=== PATIENT | female | born 1985 | race Hispanic/Latino ===

== ENCOUNTER 2021-09-08 07:30 | Observation (INO) | payer BC ==
[2021-09-06 14:45] VITALS: BP 158/94
[2021-09-06 15:18] LABS: BASOPHILS % (AUTO) 0.1 % (0.0-5.0); EOSINOPHILS % (AUTO) 1.9 % (0.0-8.0); HEMATOCRIT 35.3 % (36-48); LYMPHOCYTES % (AUTO) 20.9 % (21.0-51.0); MEAN CORPUSCULAR HEMOGLOBIN 23.1 pg (27.0-33.0); MEAN CORPUSCULAR HGB CONC 30.3 g/dL (32.0-36.0); MEAN CORPUSCULAR VOLUME 76.1 fL (79-99); MONOCYTES % (AUTO) 5.9 % (3.0-13.0); NEUTROPHILS % (AUTO) 70.9 % (40.0-77.0); PLATELET COUNT (AUTO) 286 K/uL (130-400); RED BLOOD CELL COUNT(AUTO) 4.64 MIL/uL (4.00-5.50); RED CELL DISTRIBUTION WIDTH 18.2 % (11.0-15.5); WHITE BLOOD COUNT (AUTO) 6.8 K/uL (4.8-10.8)
[2021-09-06 15:30] LABS: CREATININE 0.7 mg/dL (0.5-1.5); POTASSIUM 3.4 mmol/L (3.5-5.1)
[2021-09-06 15:32] LABS: INR 1.03 (0.85-1.15); PROTHROMBIN TIME 11.2 SEC (9.6-11.6)
[2021-09-06 15:34] LABS: PARTIAL THROMBOPLASTIN TIME 29.8 SEC (26.3-35.5)
[2021-09-08] VITALS (35 sets, daily range): BP systolic 127–173; BP diastolic 68–114
[~2021-09-08] VITALS: Ht 170.2 cm; Wt 116.6 kg
[2021-09-08] MEDS ORDERED: LACTATED RINGERS 1000ML 1,000 ML IV ONE (08:05)
[2021-09-08] MEDS: CEFAZOLIN SODIUM 1 GM VIAL ONE ×2 (08:30→13:36)
[2021-09-08] MEDS ORDERED: SUCCINYLCHOLINE CHLORIDE 20 MG/ML 10 ML VIAL ONE (12:22)
[2021-09-08] MEDS ORDERED: LIDOCAINE PF 100MG/5ML (2%) SYRINGE 5ML ONE (12:22)
[2021-09-08] MEDS ORDERED: PHENYLEPHRINE HCL 10 MG/ML 1ML VIAL IV ONE (12:22)
[2021-09-08] MEDS ORDERED: FENTANYL CITRATE PF 50 MCG/1 ML 5ML AMP IV ONE ×2 (12:23→15:44)
[2021-09-08] MEDS ORDERED: PROPOFOL 10 MG/ML 20ML VIAL IV ONE ×2 (12:23→15:28)
[2021-09-08] MEDS ORDERED: LIDOCAINE 1%-EPI 1:100,000 20 ML VIAL IJ ONE (12:48)
[2021-09-08] MEDS ORDERED: BACITRACIN 28.4 GM OINT TP ONE (15:08)
[2021-09-08] MEDS: LABETALOL 20MG SYG IV ONE ×2 (16:47→17:10)
[2021-09-08] MEDS ORDERED: LABETALOL 20MG SYG IV ONE (17:11)
[2021-09-08] MEDS ORDERED: HYDRALAZINE 20MG/ML VIAL ONE (18:28)
[2021-09-08] MEDS ORDERED: ONDANSETRON 4MG INJ IVP PRN (20:30)
[2021-09-08] MEDS ORDERED: HYDROMORPHONE 0.5 MG SYG (0.5MG/0.5ML) IVP PRN (20:30)
[2021-09-08] MEDS: LACTATED RINGERS 1000ML 1,000 ML IV SCH (20:51)
[2021-09-08] MEDS: ACETAMINOPHEN 500 MG TABLET PO PRN (21:03)
[2021-09-09] VITALS (10 sets, daily range): BP systolic 126–136; BP diastolic 74–90
[2021-09-09] MEDS ORDERED: LABETALOL 20MG VIAL IV PRN (02:00)
[2021-09-09] MEDS ORDERED: HYDRALAZINE HCL 10 MG TABLET PO SCH (02:00)
[2021-09-09] MEDS: ACETAMINOPHEN 500 MG TABLET PO PRN (03:09)
[2021-09-09] MEDS: LACTATED RINGERS 1000ML 1,000 ML IV SCH (05:39)
[2021-09-09] MEDS ORDERED: LEVOTHYROXINE 100 MCG TABLET PO SCH (06:30)
[2021-09-09] MEDS ORDERED: ACETAMINOPHEN 500 MG TABLET PO SCH (08:30)
== END 2021-09-09 10:40 | disposition home or self-care (01) ==
LOC: DAH 07:30 → WSH 07:31 → DAH 07:31 → WSH 19:05
PROVIDERS: ADMIT Otolaryngology; ATTEND Otolaryngology
DX: E04.2 Nontoxic multinodular goiter (principal); Z20.822 Contact with and (suspected) exposure to COVID-19; E03.9 Hypothyroidism, unspecified; Z79.899 Other long term (current) drug therapy; Z98.890 Other specified postprocedural states; Z68.39 Body mass index [BMI] 39.0-39.9, adult
CPT/HCPCS: 36415 ×3; 60240; 71045; 80048; 82310 ×2; 83970; 84703; 85025; 85610; 85730; 87635; 93005; 96374; A4215; A4216; A4221; A4222; A4223 ×2; A4344; A4600; A4649 ×2; A4663; A4930 ×2; A6260; C9803; G0378 ×16; J0330; J0360; J0690; J2001; J2370; J2405; J2704 ×2; J3010 ×2; J3490; J7120 ×3